=== PATIENT | female | born 1975 | race Caucasian/White ===

== ENCOUNTER 2025-05-27 01:25 | Emergency (ER) | payer OTHER, SELFPAY ==
[2025-05-27 01:30] VITALS: BP 166/95
[2025-05-27 01:39] VITALS: BP 166/95
[2025-05-27 01:56] LABS: Hematocrit 39.9 % (37.0-47.0); Hemoglobin 13.7 g/dL (12.0-16.0); Mean Corp Hgb Conc. 34.3 g/dL (33.0-37.0); Mean Corpuscular Volume 91.1 fL (81.0-99.0); Nucleated Red Blood Cells % 0 %; Platelet Count 255 10^3/uL (130-400); Red Cell Dist. Width 12.1 % (11.5-14.5)
[2025-05-27 02:09] LABS: HCG, Serum Qualitative Screen Negative
[2025-05-27 02:13] LABS: ALT (SGPT) 19 U/L (0-35); AST (SGOT) 26 U/L (14-36); Albumin 4.9 g/dl (3.5-5.0); Alkaline Phosphatase 51 U/L (38-126); Blood Urea Nitrogen 15 mg/dl (7-17); Calcium 9.9 mg/dl (8.4-10.2); Carbon Dioxide 29 mmol/L (22-30); Chloride 100 mmol/L (98-107); Glucose 95 mg/dl (70-99); Potassium 4.1 mmol/L (3.5-5.1); Sodium 138 mmol/L (135-145); Total Protein 8.0 g/dl (6.3-8.2); eGFR > 60.00
--- NOTE | 2025-05-27 06:42 | ED.GENMED ---
History of Present Illness
General
Chief Complaint: Headache
Source: patient and spouse
Exam Limitations: none
Time Seen by Provider: 05/27/25 06:12
Nursing documentation reviewed up to this point in time: agreed with
History of Present Illness
History of Present Illness:
Note:
CHIEF COMPLAINT(S)
Severe headache with secondary pain.
HISTORY OF PRESENT ILLNESS
The patient is a 49-year-old female with a history of migraines, presenting with a severe headache different from her usual migraines. The patient reported that she hasnt experienced a migraine of this nature in over a decade. Onset was the previous
night at approximately 6 PM while straining during a bowel movement, resulting in a severe, sharp pain lasting about seven to ten minutes, subsiding and then recurring at midnight with high intensity and burning sensation upon returning to the
bathroom. The patient experienced accompanying symptoms of dizziness and shortness of breath. Her usual migraine rescue medication, Ubrogepant, was taken but did not prevent the headache due to its rapid and intense onset. The pain location is
described as extremely bad, sharpest at the back of the head, radiating to the front. The patient has been to the emergency department for a headache approximately 10 to 11 years ago, where she had an MRI of the head, which was reported as
unremarkable.
ALLERGIES
No known allergies.
EXTERNAL RECORDS REVIEWED
The patient reported undergoing an MRI of the head about 10 years ago at a medical center, which was unremarkable.
MEDICATIONS
The patient is currently taking Ubrogepant (referred to as Ubrelvy) as her rescue medication for migraines.
PHYSICAL EXAM
General: Alert, no acute distress.
Skin: Warm, dry.
Head: Normocephalic, atraumatic.
Neck: Supple, trachea midline.
Eyes, ears, nose, mouth, and throat: Oral mucosa moist.
Cardiovascular: Normal peripheral perfusion, no edema.
Respiratory: Respirations are non-labored.
Gastrointestinal: Abdomen nondistended.
Back: Normal range of motion, normal alignment.
Musculoskeletal: Normal range of motion, normal strength.
Neurological: Alert and oriented to person, place, time, and situation, no focal neurological deficit observed.
Psychiatric: Cooperative, appropriate mood & affect.
PLAN
1. Obtain a computed tomography (CT) scan of the head to evaluate for any abnormalities, focusing on the blood vessels.
2. Initiate intravenous access to administer medications to alleviate headache symptoms.
3. Educate the patient that the medications provided may cause drowsiness but are non-narcotic and ensure safety regarding her ability to drive post-treatment.
4. Monitor the patient for any changes or improvements in symptoms post-medication and imaging to ensure no acute intracranial issues.
DIFFERENTIAL DIAGNOSIS
The Differential Diagnosis includes, in no particular order and is not limited to:
1. Migraine headache
2. Cluster headache
3. Tension-type headache
4. Cervicogenic headache
5. Sinus headache
6. Intracranial hemorrhage
7. Subarachnoid hemorrhage
8. Temporal arteritis
9. Meningitis
10. Intracranial mass lesion
CARE-UPDATE
05/27/25 - 14:37
CT head and neck angiography showed no significant findings. The patient reports feeling improved after administration of Reglan and Benadryl. The patient continues to experience chronic abdominal pain, ongoing for several months, and is under the
care of a turret lathe machinist for this issue.
Disposition:
SUMMARY OF ENCOUNTER
A 49-year-old female presented to the emergency department with complaints of a severe headache, differing from her typical migraines, which began the previous night after straining during a bowel movement. The pain was described as severe, sharp,
and accompanied by dizziness and shortness of breath. Her routine migraine medication, ubrogepant, was ineffective against this headache. A computed tomography (CT) scan of the head was conducted to evaluate potential abnormalities, particularly
focusing on the blood vessels. An intravenous (IV) administration of medications, including metoclopramide and diphenhydramine, was given to manage the headache, providing symptom improvement.
PLAN
1. Ensure the patient is informed about the potential drowsy effects of the medications given.
2. Advise the patient to follow up with her primary care physician and turret lathe machinist for continued management of chronic abdominal pain.
INDEPENDENT REVIEW OF LABS AND INTERPRETATION OF TESTS
My independent review of the CT head and neck angiography shows no significant findings.
MEDICATION RECONCILIATION
Patient was administered metoclopramide and diphenhydramine intravenously during the visit for headache relief.
MEDICAL DECISION MAKING
- Complexity of Data Reviewed:
Chronic conditions affecting care: Migraine history, chronic abdominal pain.
Differential Diagnosis: Migraine headache, cluster headache, tension-type headache, cervicogenic headache, sinus headache, intracranial hemorrhage, subarachnoid hemorrhage, temporal arteritis, meningitis, intracranial mass lesion.
- Data:
Category 1:
Non-emergency department records reviewed: An unremarkable MRI performed 10 years ago was noted.
CT imaging of the head and neck angiography independently interpreted with no significant findings.
- Risk:
Consideration of Admission/Observation: Escalation of care including admission/observation was considered given the complexity and risk of the patients presenting complaint, exam findings, and/or their underlying comorbidities. However, ultimately I
feel the patient is safe for outpatient management with close follow-up. Reasoning: Work-up reassuring, does not reveal any acute life/organ-threatening processes, patients symptoms well controlled upon reevaluation, reexamination is reassuring,
vitals are stable, patient agreeable with discharge, reliable for follow-up.
DIAGNOSIS
1. Migraine, unspecified, not intractable, without status migrainosus (ICD-10: G43.909)
2. Abdominal pain, unspecified (ICD-10: R10.9)
Phy Exam
Physical Exam
Physical Exam:
.
Course
Orders/Labs/Results
Orders:
Orders
05/27/25 01:41
Test Result ONCE
05/27/25 01:46
Complete Blood Count/With Diff Urgent
Comprehensive Metabolic Panel Urgent
HCG, Serum Qualitative Screen Urgent
05/27/25 06:39
CT Head Angio W/wo Iv Contrast Urgent
Comment:
Reason For Exam: sudden onset headache
IV Insert/Care/Rem.- Treatment PRN
Diphenhydramine [Benadryl] 25 mg IV NOW STA
Metoclopramide [Reglan] 10 mg IV NOW STA
Abnormal Lab Results
05/27/25
01:46
MCH 31.3 H pg
(27.0-31.0)
05/27/25 01:46
05/27/25 01:46
Vital Signs
Initial and Last Documented VS:
Initial Vital Signs
Temp Pulse Resp BP Pulse Ox
98.6 F 74 20 166/95 98
05/27/25 01:30 05/27/25 01:30 05/27/25 01:30 05/27/25 01:30 05/27/25 01:30
Last Documented Vital Signs
Temp Pulse Resp BP Pulse Ox
97.7 F 58 17 139/71 97
05/27/25 06:46 05/27/25 09:15 05/27/25 09:15 05/27/25 09:15 05/27/25 09:15
*Pulse Oximetry
SaO2: 98
Oxygen Mode of Delivery: Room air
Patient hypoxic: no
*Critical Care Note
Total Time (30-74mins, 75-104mins- exclusive of procedures): Not Applicable
ED Attending Note
-
Portions of this chart may have been created with voice recognition software.� Occasional wrong word or��sound alike� substitutions may have occurred due to the inherent limitations of voice recognition software.
Discharge Plan
Departure
Patient Disposition: Home (Routine Discharge)
Date of Disposition: 05/27/25
Time of Disposition: 08:55
Patient with high blood pressure during this ER visit?: Yes
Condition: Good
Discharge Problem:
Headache
Instructions: Headache, Adult (DC), BLOOD PRESSURE
Prescriptions:
No Action
clonidine HCl 0.1 mg Tablet
0.1 mg PO HS
dicyclomine 20 mg Tablet
20 mg PO BID
buspirone [BuSpar] 15 mg Tablet
1 mg PO TID
duloxetine [Cymbalta] 30 mg Capsule,Delayed Release(Dr/Ec)
30 mg PO HS
duloxetine [Cymbalta] 60 mg Capsule,Delayed Release(Dr/Ec)
60 mg PO DAILY
thyroid (pork) [[place] Thyroid] 15 mg Tablet
15 mg PO DAILY
thyroid (pork) [[place] Thyroid] 60 mg Tablet
60 mg PO DAILY
Simponi ARIA 12.5 mg/mL Solution
100 mg IV Q8W
Spravato 84 mg (28 mg x 3) [place],Non-Aerosol
0 mg INTRANASAL .COMPLEX
Rx Instructions:
inhale 3 sprays into each nostril 2 times per week, with 5-minute rest between use of each device
naltrexone 4.5 mg Capsule
1 mg PO Daily
lorazepam [Ativan] 0.5 mg Tablet
0.5 mg PO DAILY PRN (Reason: Anxiety/Panic attacks)
baclofen 10 mg Tablet
10 mg PO DAILY PRN (Reason: neck/back spasms)
Ubrelvy 100 mg Tablet
100 mg PO ONCE PRN (Reason: Migraine headaches)
Referrals:
UNKNOWN - PT DOES,NOT KNOW [Unknown Provider]
Activity Restrictions/Additional Instructions:
Follow up with primary care 3-5 days and gastroenterology. Return for any concerns.
Interventions
Interventions:
*General Assessment Last Done: 05/27/25 01:30
*Neglect/Abuse Screening Last Done: 05/27/25 01:30
*ED COVID-19 Vaccine History Last Done: 05/27/25 01:30
*ED Influenza Vaccine History Last Done: 05/27/25 01:30
[place] Fall Risk Assessment Tool Last Done: 05/27/25 07:05
*Risk Screen - Suicide (C-SSRS) Last Done: 05/27/25 09:16
*Nursing Disposition Last Done: 05/27/25 09:16
ED- Neurological Assessment Last Done: 05/27/25 06:20
Discharge Date and Time
Discharge Date/Time: 05/27/25 09:18
Print Language: PARAGUAY[place]
[2025-05-27 06:46] VITALS: BP 141/81
[2025-05-27] MEDS: BENADRYL 25 MG IV (07:38)
[2025-05-27] MEDS: REGLAN 10 MG IV (07:38)
[2025-05-27 09:15] VITALS: BP 139/71
== END 2025-05-27 09:18 | disposition home or self-care (01) ==
LOC: EMR 01:25
PROVIDERS: Emergency Medicine; EMERGENCY PHYSICIAN Emergency Medicine; FAMILY PHYSICIAN Internal Medicine
DX: R51.9 Headache, unspecified (principal); R03.0 Elevated blood-pressure reading, without diagnosis of hypertension; R10.9 Unspecified abdominal pain; G89.29 Other chronic pain
CPT/HCPCS: 99284; 96374; 96375; 70496; 80053; 84703; 85025; Q9967